=== PATIENT | female | born 2000 | race Caucasian/White ===

== ENCOUNTER 2022-06-20 00:05 | Inpatient (IN) ==
[2022-06-20 00:15] VITALS: BMI 29.9
[2022-06-20 00:34] LABS: BILIRUBIN,URINE NEGATIVE (NEGATIVE); BLOOD/HEMOGLOBIN,URINE NEGATIVE (NEGATIVE); GLUCOSE, URINE NEGATIVE (NEGATIVE); KETONES,URINE NEGATIVE (NEGATIVE); LEUKOCYTE ESTERASE ,URINE NEGATIVE (NEGATIVE); NITRITES,URINE NEGATIVE (NEGATIVE); PROTEIN,URINE NEGATIVE (NEGATIVE); UROBILINOGEN,URINE NORMAL (NORMAL)
[2022-06-20] MEDS ORDERED: D5 1/2 NS 1,000 ML 1,000 ML IV ONE ×3 (00:35→05:13)
[2022-06-20 01:00] LABS: AMNISURE ROM TEST THERE IS A RUPTURE (NO RUPTURE)
[2022-06-20 01:01] LABS: APPEARANCE,URINE CLEAR (CLEAR); COLOR,URINE STRAW (YELLOW)
[2022-06-20] MEDS ORDERED: NS 100 ML IV 100 ML ONE (01:13)
[2022-06-20] MEDS ORDERED: ANCEF VIAL 1 GRAM ONE (01:14)
[2022-06-20] MEDS ORDERED: LR 1,000 ML IV 1,000 ML IV ONE ×2 (01:15→02:13)
[2022-06-20 01:20] LABS: BASOPHILS % (AUTO) 0.3 % (0.2-1.0); EOSINOPHILS # (AUTO) 0.1 x10^3/uL (0.0-0.2); EOSINOPHILS % (AUTO) 1.5 % (0.9-2.9); HEMATOCRIT 33.6 % (36.0-47.0); HEMOGLOBIN 11.1 g/dL (12.0-16.0); LYMPHOCYTES # (AUTO) 1.8 X10^3/uL (1.3-2.9); LYMPHOCYTES % (AUTO) 25.2 % (21.0-51.0); MEAN CORPUSCULAR HEMOGLOBIN 24.6 pg (27.0-34.0); MEAN CORPUSCULAR HGB CONC 33.1 g/dL (33.0-35.0); MEAN CORPUSCULAR VOLUME 74.4 fL (80.0-100.0); MEAN PLATELET VOLUME 10.1 fL (7.4-11.0); MONOCYTES # (AUTO) 0.6 x10^3/uL (0.3-0.8); MONOCYTES % (AUTO) 8.5 % (0.0-13.0); NEUTROPHILS # (AUTO) 4.5 x10^3/uL (2.2-4.8); NEUTROPHILS % (AUTO) 64.5 % (42.0-75.0); RED BLOOD COUNT 4.52 X10^6/uL (3.5-5.4); RED CELL DISTRIBUTION WIDTH 14.9 % (11.6-16.5); WHITE BLOOD COUNT 6.9 X10^3/uL (3.6-10.0)
[2022-06-20] MEDS ORDERED: TORADOL 30 MG VIAL IVP PRN ×2 (01:21→06:01)
[2022-06-20] MEDS ORDERED: BENADRYL INJ 50 MG VIAL IVP PRN ×2 (01:21→06:01)
[2022-06-20] MEDS ORDERED: NARCAN INJ IVP PRN ×2 (01:21→06:01)
[2022-06-20] MEDS ORDERED: PERCOCET TAB 5/325 MG PO PRN ×2 (01:21→06:01)
[2022-06-20] MEDS ORDERED: ZOFRAN INJ 4 MG VIAL IVP PRN ×2 (01:21→06:01)
[2022-06-20] MEDS ORDERED: ANCEF VIAL 1 GRAM IVP ONE (01:21)
[2022-06-20] MEDS ORDERED: REGLAN INJ 10 MG VIAL IVP PRN ×2 (01:21→06:01)
[2022-06-20 01:24] LABS: HYPOCHROMASIA SLIGHT; MICROCYTOSIS SLIGHT; PLATELET MORPHOLOGY COMMENT NORMAL (NORMAL)
[2022-06-20 01:33] LABS: ALANINE AMINOTRANSFERASE 14 Units/L (12-78); ALBUMIN 2.7 g/dL (3.4-5.0); ALKALINE PHOSPHATASE 121 Units/L (46-116); ASPARTATE AMINO TRANSFERASE 16 Units/L (15-37); BLOOD UREA NITROGEN 7 mg/dL (7-18); CALCIUM 8.5 mg/dL (8.5-10.1); CARBON DIOXIDE 23.1 mmol/L (21-32); CHLORIDE 101 mmol/L (98-107); COR CA(FOR HYPOALB) 9.5 mg/dL (8.5-10.1); COR NA(FOR HYPERGLY) 135 mmol/L (136-145); CREATININE 0.66 mg/dL (0.55-1.02); SODIUM 134 mmol/L (136-145); TOTAL PROTEIN 6.4 g/dL (6.4-8.2); eGFR NON BLACK RACES > 60 (>60)
[2022-06-20] MEDS ORDERED: D5 1/2 NS 1,000 mL + PITOCIN 20 UNITS/L IV 20 UNITS/1,000 ML BAG IV ONE (01:46)
[2022-06-20] MEDS ORDERED: ZOFRAN INJ 4 MG VIAL ONE (01:59)
[2022-06-20] MEDS ORDERED: XYLOCAINE 2 % (PLAIN) ONE (01:59)
[2022-06-20] MEDS ORDERED: MARCAINE SPINAL ONE (01:59)
[2022-06-20] MEDS ORDERED: PRECEDEX INJ VIAL IVP ONE (01:59)
[2022-06-20] MEDS ORDERED: EPHEDRINE SULFATE INJ ONE (01:59)
[2022-06-20] MEDS ORDERED: PEPCID 20 MG VIAL ONE (01:59)
[2022-06-20] MEDS ORDERED: NEO-SYNEPHRINE INJ ONE (01:59)
[2022-06-20] MEDS ORDERED: D5 1/2 NS 1,000 ML 1,000 ML IV SCH ×2 (02:00)
[2022-06-20] MEDS ORDERED: DILAUDID INJ ONE (02:00)
[2022-06-20] MEDS ORDERED: PITOCIN ONE ×2 (03:03→05:12)
[2022-06-20] MEDS ORDERED: TORADOL 30 MG VIAL ONE (03:13)
[2022-06-20] MEDS ORDERED: DIPRIVAN VIAL 20 ML ONE (03:24)
[2022-06-20 05:10] LABS: BASOPHILS # (AUTO) 0.3 X10^3/uL (0.0-0.1); BASOPHILS % (AUTO) 2.6 % (0.2-1.0); EOSINOPHILS % (AUTO) 0.3 % (0.9-2.9); HEMATOCRIT 32.1 % (36.0-47.0); HEMOGLOBIN 10.3 g/dL (12.0-16.0); LYMPHOCYTES # (AUTO) 0.6 X10^3/uL (1.3-2.9); LYMPHOCYTES % (AUTO) 5.2 % (21.0-51.0); MEAN CORPUSCULAR HEMOGLOBIN 24.1 pg (27.0-34.0); MEAN CORPUSCULAR HGB CONC 32.1 g/dL (33.0-35.0); MEAN CORPUSCULAR VOLUME 75.1 fL (80.0-100.0); MEAN PLATELET VOLUME 10.1 fL (7.4-11.0); MONOCYTES # (AUTO) 0.3 x10^3/uL (0.3-0.8); MONOCYTES % (AUTO) 2.2 % (0.0-13.0); NEUTROPHILS # (AUTO) 10.1 x10^3/uL (2.2-4.8); NEUTROPHILS % (AUTO) 89.7 % (42.0-75.0); RED BLOOD COUNT 4.27 X10^6/uL (3.5-5.4); RED CELL DISTRIBUTION WIDTH 14.5 % (11.6-16.5); WHITE BLOOD COUNT 11.3 X10^3/uL (3.6-10.0)
[2022-06-20 05:12] LABS: BLOOD UREA NITROGEN 6 mg/dL (7-18); CARBON DIOXIDE 19.8 mmol/L (21-32); CHLORIDE 101 mmol/L (98-107); COR NA(FOR HYPERGLY) 133 mmol/L (136-145); SODIUM 131 mmol/L (136-145); eGFR NON BLACK RACES > 60 (>60)
[2022-06-20] MEDS ORDERED: METHERGINE IM ONE (05:30)
[2022-06-20] MEDS ORDERED: METHERGINE ONE (05:32)
[2022-06-20] MEDS ORDERED: MYLICON TAB 80 MG CHEW PO PRN (06:01)
[2022-06-20] MEDS ORDERED: ADACEL or BOOSTRIX TDaP VACCINE IM ONE (06:01)
[2022-06-20] MEDS ORDERED: HYPERRHO S/D (or RHOGAM) IM PRN (06:01)
[2022-06-20] MEDS ORDERED: D5 1/2 NS 1,000 ML 1,000 ML with PITOCIN 20 UNITS IV SCH ×2 (06:01)
[2022-06-20] MEDS ORDERED: MICRO K EXTEN CAP 10 MEQ PO PRN (07:09)
[2022-06-20] MEDS ORDERED: KLOR-CON PO PRN (07:09)
[2022-06-20] MEDS ORDERED: POTASSIUM CHLORIDE LIQ 20 MEQ UDC PO PRN (07:09)
[2022-06-20] MEDS ORDERED: POTASSIUM CHL 40 MEQ/NS 0.45% 500 ML IV PRN (07:09)
[2022-06-20] MEDS ORDERED: K-DUR TAB 20 MEQ PO PRN (07:09)
[2022-06-20] MEDS ORDERED: POTASSIUM CHL 60 MEQ/NS 0.45% 500 ML IV PRN (07:09)
[2022-06-20] MEDS ORDERED: K-RIDER 10 MEQ/NS 100 ML 10 MEQ/100 ML BAG IV PRN (07:09)
[2022-06-20] MEDS: PRENATAL PLUS PO SCH (08:26)
[2022-06-20] MEDS: MOTRIN TAB 800 MG PO PRN (20:11)
[2022-06-20] MEDS: COLACE CAP 100 MG PO SCH (20:11)
[2022-06-20] MEDS: BACTROBAN TOPICAL OINT TOP SCH (22:02)
[2022-06-20] MEDS: PERCOCET TAB 5/325 MG PO PRN (22:42)
[2022-06-21] MEDS: BACTROBAN TOPICAL OINT TOP SCH ×2 (05:13→13:22)
[2022-06-21 05:27] LABS: HEMATOCRIT 28.8 % (36.0-47.0); HEMOGLOBIN 9.3 g/dL (12.0-16.0)
[2022-06-21] MEDS: PRENATAL PLUS PO SCH (08:21)
[2022-06-21] MEDS: COLACE CAP 100 MG PO SCH (08:21)
[2022-06-21] MEDS: MOTRIN TAB 800 MG PO PRN (08:22)
[2022-06-21 12:41] VITALS: BP 105/73
[2022-06-21] MEDS: PERCOCET TAB 5/325 MG PO PRN (13:22)
== END 2022-06-21 14:20 | disposition home or self-care (01) | DRG 786 ==
LOC: ER 00:07 → LD 01:10 → MED/SURG 04:39
PROVIDERS: ADMIT Specialist; ATTEND Specialist
DX: Z3A.36 36 weeks gestation of pregnancy; O34.211 Maternal care for low transverse scar from previous cesarean delivery; O60.14X0 Preterm labor third trimester with preterm delivery third trimester, not applicable or unspecified; Z37.0 Single live birth; O99.02 Anemia complicating childbirth; N85.8 Other specified noninflammatory disorders of uterus; E87.6 Hypokalemia; D50.8 Other iron deficiency anemias

== ENCOUNTER 2025-01-25 06:27 | Inpatient (IN) ==
[~2025-01-25 06:27] MED LIST: ANCEF VIAL 1 GRAM IVP ONE; LR 1,000 ML IV 1,000 ML IV SCH
[2025-01-25] MEDS: LR 1,000 ML IV 1,000 ML IV ONE ×2 (06:53→07:50)
[2025-01-25] MEDS: ANCEF VIAL 1 GRAM IVP ONE (07:06)
[2025-01-25] MEDS: NS 100 ML IV 100 ML ONE (07:09)
[2025-01-25] MEDS: ANCEF VIAL 1 GRAM ONE (07:10)
[2025-01-25] MEDS: PRECEDEX INJ VIAL ONE (07:18)
[2025-01-25] MEDS: MARCAINE SPINAL ONE (07:18)
[2025-01-25] MEDS: XYLOCAINE 2 % (PLAIN) ONE (07:18)
[2025-01-25] MEDS: EPHEDRINE SULFATE INJ ONE (07:31)
[2025-01-25] MEDS: NEO-SYNEPHRINE INJ ONE (07:34)
[2025-01-25] MEDS: VERSED ONE (08:03)
[2025-01-25] MEDS ORDERED: DILAUDID INJ IVP PRN (08:37)
[2025-01-25] MEDS ORDERED: ZOFRAN INJ 4 MG VIAL IVP PRN ×2 (08:37→09:32)
[2025-01-25] MEDS ORDERED: BENADRYL INJ 50 MG VIAL IVP PRN ×2 (08:37→09:32)
[2025-01-25] MEDS ORDERED: REGLAN INJ 10 MG VIAL IVP PRN ×2 (08:37→09:32)
[2025-01-25] MEDS ORDERED: HYPERRHO S/D (or RHOGAM) IM PRN (09:32)
[2025-01-25] MEDS ORDERED: MYLICON TAB 80 MG CHEW PO PRN (09:32)
[2025-01-25] MEDS: OXYTOCIN 20 UNIT/1,000 ML-NS 20 UNIT/1,000 ML PLAST..BAG IV SCH (09:33)
[2025-01-25] MEDS: LR 1,000 ML IV 1,000 ML IV SCH (10:43)
[2025-01-25] MEDS: PROTONIX TAB 40 MG PO SCH (10:43)
[2025-01-25] MEDS: ADACEL or BOOSTRIX TDaP VACCINE IM ONE (10:58)
[2025-01-25] MEDS: MOTRIN TAB 800 MG PO PRN (11:03)
[2025-01-25] MEDS: D5 1/2 NS 1,000 ML 1,000 ML IV ONE (17:28)
[2025-01-25] MEDS: PITOCIN ONE (17:28)
[2025-01-25] MEDS: TORADOL 30 MG VIAL IVP PRN (17:30)
[2025-01-25] MEDS: PERCOCET TAB 5/325 MG PO PRN (22:07)
[2025-01-26] MEDS: COLACE CAP 100 MG PO SCH (08:45)
[2025-01-26] MEDS: PRENATAL PLUS PO SCH (08:45)
[2025-01-26] MEDS: PROTONIX TAB 40 MG PO SCH (08:45)
[2025-01-26] MEDS: BACTROBAN TOPICAL OINT TOP SCH (13:48)
[2025-01-26] MEDS: PERCOCET TAB 5/325 MG PO PRN (13:48)
[2025-01-26 17:50] VITALS: RESP 18
[2025-01-27 11:38] VITALS: BP 109/70; PULSE 73; TEMP 98.2; O2SAT 98
== END 2025-01-27 12:05 | disposition home or self-care (01) | DRG 787 ==
LOC: LD 06:27 → MED/SURG 10:08
PROVIDERS: ADMIT Specialist; ATTEND Specialist
DX: Z3A.38 38 weeks gestation of pregnancy; O99.891 Other specified diseases and conditions complicating pregnancy; N87.0 Mild cervical dysplasia; O34.211 Maternal care for low transverse scar from previous cesarean delivery; Z37.0 Single live birth; O99.613 Diseases of the digestive system complicating pregnancy, third trimester; K21.9 Gastro-esophageal reflux disease without esophagitis; Z01.818 Encounter for other preprocedural examination; O99.113 Other diseases of the blood and blood-forming organs and certain disorders involving the immune mechanism complicating pregnancy, third trimester